=== PATIENT | male | born 1985 | race Hispanic/Latino ===

== ENCOUNTER 2017-08-06 21:25 | Emergency (ER) | payer BC ==
[2017-08-06] MEDS ORDERED: hydrOXYzine 25 MG TAB ONE (22:33)
[2017-08-06] MEDS ORDERED: Famotidine 20 MG TAB ONE (22:33)
[2017-08-06] MEDS ORDERED: Dexamethasone 10 MG/ML VIAL ONE (22:33)
== END 2017-08-06 23:30 | disposition home or self-care (01) ==
LOC: ERS 21:25
DX: L50.0 Allergic urticaria (principal); G40.909 Epilepsy, unspecified, not intractable, without status epilepticus; Z87.891 Personal history of nicotine dependence; Z79.899 Other long term (current) drug therapy
CPT/HCPCS: 99282; J1100

== ENCOUNTER 2018-01-10 12:20 | Emergency (ER) | payer BC ==
--- NOTE | 2018-01-10 13:33 | RAD ---
RIGHT FOOT THREE VIEWS: INDICATIONS: Foot pain with knot in the heel. FINDINGS: No acute fracture or subluxation is evident. Lisfranc alignment is preserved. No radiopaque foreign body is demonstrated. IMPRESSION: No acute osseous abnormality. POS: [facility]
== END 2018-01-10 13:30 | disposition home or self-care (01) ==
LOC: ERS 12:20
DX: S86.111A Strain of other muscle(s) and tendon(s) of posterior muscle group at lower leg level, right leg, initial encounter (principal); G57.61 Lesion of plantar nerve, right lower limb; G40.909 Epilepsy, unspecified, not intractable, without status epilepticus; Z87.891 Personal history of nicotine dependence; X50.1XXA Overexertion from prolonged static or awkward postures, initial encounter; Y93.67 Activity, basketball

== ENCOUNTER 2020-05-28 08:53 | Emergency (ER) | payer OTHER ==
--- NOTE | 2020-05-28 09:49 | RAD ---
XR Hip Rt 2-3 View HISTORY: Injury, right hip pain FINDINGS: No fracture or dislocation is identified.
--- NOTE | 2020-05-28 09:49 | RAD ---
RIGHT FOOT 3 VIEWS: Date: 05/28/2020 HISTORY: Right foot pain, status post injury. FINDINGS: There are no signs of fracture or dislocation. IMPRESSION: Negative right foot. POS: AH
--- NOTE | 2020-05-28 09:50 | RAD ---
XR Shoulder Rt 3 View STANDARD HISTORY: Injury, right shoulder pain FINDINGS: No fracture or dislocation is identified.
== END 2020-05-28 10:39 | disposition home or self-care (01) ==
LOC: ERS 08:53
DX: T14.8XXA Other injury of unspecified body region, initial encounter (principal); G40.909 Epilepsy, unspecified, not intractable, without status epilepticus; Z87.891 Personal history of nicotine dependence; V89.2XXA Person injured in unspecified motor-vehicle accident, traffic, initial encounter

== ENCOUNTER 2020-08-12 14:22 | Emergency (ER) | payer BC ==
--- NOTE | 2020-08-12 15:02 | RAD ---
Exam: XR Knee Rt 4 View STANDARD HISTORY: Right knee pain. COMPARISON: None FINDINGS: No acute fracture, dislocation, or other acute osseous abnormality is identified. IMPRESSION: No acute osseous abnormality is identified.
[2020-08-12] MEDS ORDERED: Ketorolac Tromethamine 30 MG/ML VIAL ONE (16:53)
== END 2020-08-12 17:24 | disposition home or self-care (01) ==
LOC: ERS 14:22
DX: M25.561 Pain in right knee (principal); G40.909 Epilepsy, unspecified, not intractable, without status epilepticus; Z87.891 Personal history of nicotine dependence
CPT/HCPCS: 96372; J1885

== ENCOUNTER 2020-09-11 10:09 | Outpatient (CLI) | payer BC | END 2020-09-11 10:10 | disposition home or self-care (01) | LOC: MRI 10:09 | PROVIDERS: ATTEND Orthopaedic Surgery | DX: M70.41 Prepatellar bursitis, right knee (principal) ==

== ENCOUNTER 2020-09-30 03:50 | Emergency (ER) | payer BC ==
[2020-09-30 04:35] LABS: #Basophils 0.1 thou/uL (0.0-0.2); #Lymphocytes 2.2 thou/uL (1.20-3.40); #Monocytes 0.8 thou/uL (0.11-0.59); #Neutrophils 4.6 thou/uL (1.40-6.50); %Basophils 0.8 % (0.0-1.0); %Eosinophils 0.5 % (0.0-10.0); %Lymphocytes 28.7 % (21.0-51.0); %Monocytes 9.9 % (0.0-10.0); %Neutrophils 60.1 % (42.0-75.0); Mean Corpuscular HGB CONC 32.5 g/dL (32.0-36.0); Mean Corpuscular Hemoglobin 30.6 pg (27.0-31.0); Mean Corpuscular Volume 94.1 fL (78.0-98.0); Mean Platelet Volume 8.1 fL (7.4-10.4); Platelet Count 248 thou/uL (130-400); RBC Distribution Width 12.1 % (11.5-14.5); Red Blood Cell (RBC) Count 5.22 mill/uL (4.70-6.10); White Blood Cell (WBC) Count 7.7 thou/uL (4.8-10.8)
[2020-09-30] MEDS ORDERED: Lidocaine Viscous Sol 2% 15 ml UD Cup ONE (04:45)
[2020-09-30] MEDS ORDERED: Mag-Al 1200 mg/1200 mg/30 ML UDCUP ONE (04:45)
[2020-09-30] MEDS ORDERED: Ondansetron ODT 4 MG TAB ONE (04:45)
[2020-09-30 04:50] LABS: ALT (SGPT) 19 U/L (8-55); AST (SGOT) 20 U/L (5-34); Albumin 4.7 g/dL (3.5-5.0); Alkaline Phosphatase 84 U/L (40-110); Anion Gap 14 mmol/L (10-20); BUN (Urea Nitrogen) 11 mg/dL (8.9-20.6); Calc. Creatinine Clearance 0 mL/min (70-130); Calcium 9.4 mg/dL (7.8-10.44); Carbon Dioxide 24 mmol/L (22-29); Chloride 105 mmol/L (98-107); Globulin 3.2 g/dL (2.4-3.5); Glucose 111 mg/dL (70-105); Lipase 15 U/L (8-78); Potassium 3.3 mmol/L (3.5-5.1); Protein, Total 7.9 g/dL (6.0-8.3); Sodium 140 mmol/L (136-145)
== END 2020-09-30 05:40 | disposition home or self-care (01) ==
LOC: ERS 03:50
DX: R10.12 Left upper quadrant pain (principal); G40.909 Epilepsy, unspecified, not intractable, without status epilepticus; Z87.891 Personal history of nicotine dependence
CPT/HCPCS: 36415; 80053; 83690; 85025; 99284; Q0162

== ENCOUNTER 2021-11-09 22:55 | Emergency (ER) | payer BC, SELFPAY | END 2021-11-09 23:25 | disposition home or self-care (01) | LOC: ERS 22:55 | DX: L03.115 Cellulitis of right lower limb (principal); L03.811 Cellulitis of head [any part, except face]; R23.8 Other skin changes; G40.909 Epilepsy, unspecified, not intractable, without status epilepticus; W57.XXXA Bitten or stung by nonvenomous insect and other nonvenomous arthropods, initial encounter; Z87.19 Personal history of other diseases of the digestive system; Z87.891 Personal history of nicotine dependence | CPT/HCPCS: 99282 ==